=== PATIENT | male | born 1965 | race Native Hawaiian/Other Pacific Islander ===

== ENCOUNTER 2017-06-15 07:31 | Inpatient (IN) | payer OTHER ==
[2017-06-09 09:13] VITALS: BMI 25.0
[2017-06-15] MEDS ORDERED: Midazolam 2 MG/2 ML VIAL ONE (09:16)
[2017-06-15] MEDS ORDERED: Propofol 10 mg/ml Inj (20 ML) ONE (09:16)
[2017-06-15] MEDS ORDERED: Gentamicin 80 mg in 0.9% NS 160 MG/200 ML BAG IVPB ONE (09:24)
[2017-06-15] MEDS ORDERED: cefTRIAXone IV 1 gm in Dextros 50 ML IVPB ONE (09:24)
[2017-06-15] MEDS ORDERED: Lidocaine 2% Jelly (Uro-Jet) ONE (09:25)
[2017-06-15] MEDS ORDERED: Phenylephrine 10 mg/ml Inj ONE (09:35)
[2017-06-15] MEDS ORDERED: ePHEDrine 50 mg/ml Inj ONE (09:35)
[2017-06-15] MEDS: HYDROmorphone 0.5 mg/0.5 ml ISec IVP PRN ×2 (11:40→12:00)
--- NOTE | 2017-06-15 12:33 | PCM.SURG1 ---
Surgeon's Initial Post Op Note - Surgeon's Notes Surgeon: Soraya Posey [place] Boat Pilot: none Type of Anesthesia: General LMA Pre-Operative Diagnosis: urinary retention, BPH Operative Findings: same Post-Operative Diagnosis: same Operation Performed: cystoscopy, TURP Specimen/Specimens Removed: urine. prostate Estimated Blood Loss: EBL {In ML}: 200 Blood Products Given: N/A Post-Op Condition: Good Date of Surgery/Procedure: 06/15/17 Time of Surgery/Procedure: 11:00
--- NOTE | 2017-06-15 13:13 | CP.PCM.HP ---
<Rodolfo Cordova - Last Filed: 06/15/17 14:07> History of Present Illness - History of Present Illness History of Present Illness: CC: S/P TURP HPI: 52M PMHx BPH presented for post operative management after TURP. Pt seen and examined at PACU. Pt lethargic after anesthesia but was able to answer simple questions. Pt reports BPH symptoms started 2 years ago. Pt was seen by Dr. Posey outpatient and was placed on trial of Flomax. Pt said it did not work and he still have frequency and nocturia 2-3 times overnight. Pt currently denied pain, chest pain, abdominal pain, SOB, palpitations, fever, chills, n/ v. NKDA PMHx: none PSHx: none FMHx: reviewed and not contributory Social: Denied ETOH, tobacco or drugs. Works as agency cashier. PMD: Dr. Figueroa Present on Admission - Present on Admission Any Indicators Present on Admission: No Review of Systems - Constitutional Constitutional: absent: Chills, Fever, Weakness - Cardiovascular Cardiovascular: absent: Chest Pain, Edema, Pedal Edema - Respiratory Respiratory: absent: Cough, Dyspnea - Gastrointestinal Gastrointestinal: absent: Abdominal Pain, Constipation, Diarrhea, Nausea, Vomiting - Genitourinary Genitourinary: Nocturia, Urinary Frequency. absent: Hematuria - Musculoskeletal Musculoskeletal: absent: Back Pain - Integumentary Integumentary: absent: Change in Nails, Rash - Neurological Neurological: absent: Confusion Past Patient History - Past Medical History & Family History Past Medical History?: Yes - Past Social History Smoking Status: Never Smoked - CARDIAC Hx Cardiac Disorders: No - PULMONARY Hx Respiratory Disorders: No - NEUROLOGICAL Hx Neurological Disorder: No - HEENT Hx HEENT Problems: No - RENAL Hx Chronic Kidney Disease: No - ENDOCRINE/METABOLIC Hx Endocrine Disorders: No - HEMATOLOGICAL/ONCOLOGICAL Hx Blood Disorders: No - INTEGUMENTARY Hx Dermatological Problems: No - MUSCULOSKELETAL/RHEUMATOLOGICAL Hx Musculoskeletal Disorders: No - GASTROINTESTINAL Hx Gastrointestinal Disorders: No - GENITOURINARY/GYNECOLOGICAL Hx Genitourinary Disorders: Yes Hx Prostate Problems: Yes - PSYCHIATRIC Hx Psychophysiologic Disorder: No - SURGICAL HISTORY Hx Surgeries: Yes Other/Comment: cystoscopy prostate biopsy - ANESTHESIA Hx Anesthesia: Yes Hx Anesthesia Reactions: No Hx Malignant Hyperthermia: No Has any member of the family had a problem w/ anesthesia?: No Meds Allergies/Adverse Reactions: Allergies Allergy/AdvReac Type Severity Reaction Status Date / Time No Known Allergies Allergy Verified 06/09/17 09:13 Physical Exam - Constitutional Appears: Non-toxic, No Acute Distress - Head Exam Head Exam: NORMOCEPHALIC - Eye Exam Eye Exam: Normal appearance Pupil Exam: NORMAL ACCOMODATION - ENT Exam ENT Exam: Mucous Membranes Moist - Respiratory Exam Respiratory Exam: Clear to Auscultation Bilateral, NORMAL BREATHING PATTERN. absent: Rales, Rhonchi, Wheezes - Cardiovascular Exam Cardiovascular Exam: REGULAR RHYTHM, +S1, +S2. absent: Gallop, Rubs - GI/Abdominal Exam GI & Abdominal Exam: Normal Bowel Sounds, Soft. absent: Tenderness - Exam Additional comments: CBI running, draining pink urine - Neurological Exam Neurological exam: Alert, Oriented x3 - Psychiatric Exam Psychiatric exam: Normal Mood - Skin Skin Exam: Intact Additional comments: left anterior ankle chronic 1cm mass Results - Vital Signs Recent Vital Signs: Last Vital Signs Temp 97 F L 06/15/17 11:20 Pulse 64 06/15/17 12:15 Resp 10 L 06/15/17 12:15 BP 120/76 06/15/17 12:15 Pulse Ox 100 06/15/17 12:15 - Labs Result Diagrams: 06/15/17 13:46 Assessment & Plan - Assessment and Plan (Free Text) Assessment: BPH Private urologist Dr. Wayne Posey consulted, help appreciated. Failed outpatient treatment with Flomax. S/P TURP POD#0. Rocephin 1gm IV daily started on 06/15. KCl 20meq @ 100 ml/hr. Florastor 250mg PO BID. Toradol 15mg PO q6 PRN for moderate pain. Toradol 30mg PO q6 PRN for severe pain. Advance diet as tolerated. CBI management as per urology. Prophylactic measure Protonix, SCD. <Bob Lim - Last Filed: 06/15/17 18:49> Results - Vital Signs Recent Vital Signs: Last Vital Signs Temp 97.9 F 06/15/17 15:18 Pulse 60 06/15/17 15:18 Resp 20 06/15/17 15:18 BP 110/69 06/15/17 15:18 Pulse Ox 99 06/15/17 15:18 - Labs Result Diagrams: 06/15/17 13:46 06/15/17 13:46 Labs: Laboratory Results - last 24 hr 06/15/17 06/15/17 06/15/17 13:46 13:46 13:46 WBC 5.9 RBC 4.07 L Hgb 12.2 Hct 36.8 MCV 90.5 MCH 29.9 MCHC 33.1 RDW 13.8 Plt Count 240 MPV 9.8 Neut % (Auto) 58.0 Lymph % (Auto) 33.3 [place] % (Auto) 6.2 Eos % (Auto) 2.0 Baso % (Auto) 0.5 Neut # 3.4 Lymph # 2.0 [place] # 0.4 Eos # 0.1 Baso # 0.0 PT 12.4 H INR 1.1 APTT 33 Sodium 133 Potassium 4.1 Chloride 98 Carbon Dioxide 24 Anion Gap 15 BUN 12 Creatinine 1.0 Est GFR ( Amer) > 60 Est GFR (Non-Af Amer) > 60 Random Glucose 92 Calcium 8.3 L Phosphorus 3.9 Magnesium 1.8 Total Bilirubin 0.7 AST 35 ALT 35 Alkaline Phosphatase 51 Total Protein 6.8 Albumin 3.5 Globulin 3.3 Albumin/Globulin Ratio 1.1 Attending/Attestation - Attestation I have personally seen and examined this patient.: Yes I have fully participated in the care of the patient.: Yes I have reviewed all pertinent clinical information: Yes Notes (Text): 06/15/17 18:48 Patient was seen and examined before the resident. History, Physical, Assessment and Plan were thoroughly gone over with the resident. Bob Lim D.O.
[2017-06-15 13:52] LABS: BASO % 0.5 % (0.0-2.0); EOS # 0.1 K/uL (0.0-0.7); HEMATOCRIT 36.8 % (35.0-51.0); LYMPH % 33.3 % (20.0-40.0); MEAN CELL VOLUME 90.5 fL (80.0-94.0); MEAN CORPUSCULAR HEMOGLOBIN 29.9 pg (27.0-31.0); MEAN CORPUSCULAR HGB CONC 33.1 g/dL (33.0-37.0); MEAN PLATELET VOLUME 9.8 fL (7.2-11.7); MONO # 0.4 K/uL (0.0-0.8); MONO % 6.2 % (0.0-10.0); NRBC % 0.1 % (0.0-2.0); RED CELL DISTRIBUTION WIDTH 13.8 % (11.5-14.5); WHITE BLOOD COUNT 5.9 K/uL (4.8-10.8)
[2017-06-15 14:02] LABS: INR 1.1
[2017-06-15 14:21] LABS: CHLORIDE 98 mmol/L (98-107); SODIUM 133 mmol/L (132-148)
[2017-06-15 14:22] LABS: POTASSIUM 4.1 mmol/L (3.6-5.2)
[2017-06-15 14:23] LABS: GFR AFRICAN-AMERICAN > 60
[2017-06-15 14:24] LABS: ALB/GLOB RATIO 1.1 (1.0-2.1); ALKALINE PHOSPHATASE 51 U/L (38-126); ALT/SGPT 35 U/L (21-72); AST/SGOT 35 U/L (17-59); BILIRUBIN,TOTAL 0.7 mg/dL (0.2-1.3); BLOOD UREA NITROGEN 12 mg/dL (9-20); CARBON DIOXIDE 24 mmol/L (22-30); GLUCOSE,RANDOM 92 mg/dL (75-110); PHOSPHOROUS 3.9 mg/dL (2.5-4.5); TOTAL PROTEIN 6.8 g/dL (6.3-8.3)
[2017-06-15 14:25] LABS: CALCIUM 8.3 mg/dl (8.6-10.4); MAGNESIUM 1.8 mg/dL (1.6-2.3)
[2017-06-15] MEDS: Potassium Ch 20mEq in D5-1/2NS 1,000 ML IV SCH ×2 (15:07→23:09)
[2017-06-15 15:42] VITALS: RESP 20
[2017-06-15] MEDS: Saccharomyces Boulardi 250 mg Cap PO SCH (19:17)
[2017-06-16] MEDS: Potassium Ch 20mEq in D5-1/2NS 1,000 ML IV SCH (01:36)
--- NOTE | 2017-06-16 06:07 | OP ---
PROCEDURE DATE: 06/15/2017 UROLOGY OPERATIVE REPORT PREOPERATIVE DIAGNOSES: Urinary retention, enlarged prostate. POSTOPERATIVE DIAGNOSES: Urinary retention, enlarged prostate. PROCEDURE: Cystoscopy, urethral dilation, transurethral resection of the prostate. OPERATING SURGEON: Gracy Posey MD PROCEDURE IN DETAIL: The patient received general anesthesia. The patient was placed in lithotomy position. The genitalia was prepped and draped sterilely. Perioperative antibiotics were administered. The procedure was performed under video endoscopic control. A cystoscopy was performed. A 22-[place] cystoscope sheath was introduced under direct vision. Urethra, prostate, and bladder were inspected. FINDINGS: It was noted to be no stricture in the anterior urethra. There was evidence of prostatic hypertrophy. There was trilobar prostatic hypertrophy. There was a large middle lobe, on the floor. There was marked bladder trabeculation. There were small cellules as well. There was no bladder tumor. There was no bladder stone. The ureteral orifices were initially obscured by the middle lobe. However, the orifices were identified by medial displacement of the middle lobe on each side. The cystoscope was removed. A 26-[place] continuous flow resectoscope sheath was introduced under direct vision using the visual obturator. Prior to the introduction of the resectoscope, urethral meatal dilation and dilation, were required and were performed with [place] sounds. Thereafter, the resectoscope sheath was introduced. The urethra, prostate and bladder were again inspected with the findings as noted above. The resectoscope was inserted. The resection of the prostate was performed as follows. The ureteral orifice were identified and spared during the middle lobe resection. Thereafter, the anterior roof tissue was resected. Subsequently, each lateral lobe was resected, first on the right, then on the left. Subsequently, the floor and apical prostatic tissue were resected. Hemostasis was achieved after each section of resection. The prostate was noted to be vascular. The hemostasis was achieved during the resection. The prostatic chips were removed using the [place] scientific evacuator. The resectoscope was re-inserted. Hemostasis was complete. The ureteral orifices were intact. The veru was intact. There were no residual prostatic chips. The resectoscope and sheath removed. [place] catheter was inserted. Bladder drainage was clear with mild traction applied. The patient tolerated the procedure without complication. Gracy MD Kalpesh
[2017-06-16 06:28] LABS: HEMATOCRIT 35.4 % (35.0-51.0); MEAN CELL VOLUME 90.9 fL (80.0-94.0); MEAN CORPUSCULAR HEMOGLOBIN 30.8 pg (27.0-31.0); MEAN CORPUSCULAR HGB CONC 33.9 g/dL (33.0-37.0); MEAN PLATELET VOLUME 10.1 fL (7.2-11.7); RED CELL DISTRIBUTION WIDTH 13.5 % (11.5-14.5); WHITE BLOOD COUNT 7.8 K/uL (4.8-10.8)
[2017-06-16 07:32] LABS: CHLORIDE 101 mmol/L (98-107); POTASSIUM 4.9 mmol/L (3.6-5.2); SODIUM 136 mmol/L (132-148)
[2017-06-16 07:34] LABS: GFR AFRICAN-AMERICAN > 60
[2017-06-16 07:35] LABS: BLOOD UREA NITROGEN 11 mg/dL (9-20); CALCIUM 8.4 mg/dl (8.6-10.4); CARBON DIOXIDE 27 mmol/L (22-30); GLUCOSE,RANDOM 95 mg/dL (75-110)
[2017-06-16] MEDS: Saccharomyces Boulardi 250 mg Cap PO SCH ×2 (09:51→18:16)
[2017-06-16] MEDS ORDERED: cefTRIAXone IV 1 gm in Dextros 50 ML IVPB SCH (10:00)
[2017-06-16] MEDS ORDERED: Pantoprazole 40 mg EC Tab PO SCH (10:00)
--- NOTE | 2017-06-16 10:06 | CP.PCM.PN ---
Subjective - Date & Time of Evaluation Date of Evaluation: 06/16/17 Time of Evaluation: 09:00 - Subjective Subjective: Medicine Note for Dr. Kirsten Lim, Patient was seen and examined at bedside. Patient reports slight pain and discomfort. Denied fever, chills, headache, chest pain, SOB, abdominal pain, n/v /d/c, or urinary symptoms. Objective - Vital Signs/Intake and Output Vital Signs (last 24 hours): Temp Pulse Resp BP Pulse Ox 97.3 F L 69 20 99/64 L 97 06/16/17 07:10 06/16/17 07:10 06/16/17 07:10 06/16/17 07:10 06/16/17 07:10 Intake and Output: 06/16/17 06/16/17 06:59 18:59 Intake Total 64537 Output Total 77652 Balance 1120 - Medications Medications: Current Medications Docusate Sodium (Colace) 100 mg PO TID [facility] Last Admin: 06/16/17 09:51 Dose: 100 mg Hydromorphone/Sodium Chloride (Dilaudid Safety Investigator/Cause Analyst) 4 mg IV Q4H PRN; Protocol PRN Reason: Pain, severe (8-10) Ceftriaxone Sodium (Rocephin Iv 1 Gm Duplex) 50 mls @ 100 mls/hr IVPB DAILY [facility] Potassium Chloride/Dextrose/Sod Cl (Potassium Chl 20 Meq In D5-1/2ns) 1,000 mls @ 100 mls/hr IV .Q10H [facility] Last Admin: 06/16/17 01:36 Dose: 100 mls/hr Ketorolac Tromethamine (Toradol) 30 mg IVP Q6 PRN PRN Reason: Pain, severe (8-10) Ketorolac Tromethamine (Toradol) 15 mg IVP Q6 PRN PRN Reason: moderate pain, 4-7 Ondansetron HCl (Zofran Inj) 4 mg IVP Q6H PRN PRN Reason: Nausea/Vomiting Pantoprazole Sodium (Protonix Ec Tab) 40 mg PO DAILY [facility] Saccharomyces Boulardii (Florastor) 250 mg PO BID [facility] Last Admin: 06/16/17 09:51 Dose: 250 mg - Labs Labs: 06/16/17 06:05 06/16/17 06:05 PT 12.4 SECONDS (9.7-12.2) H 06/15/17 13:46 INR 1.1 06/15/17 13:46 APTT 33 SECONDS (21-34) 06/15/17 13:46 - Additional Findings Additional findings: - Constitutional Appears: Non-toxic, No Acute Distress - Head Exam Head Exam: NORMOCEPHALIC - Eye Exam Eye Exam: Normal appearance Pupil Exam: NORMAL ACCOMODATION - ENT Exam ENT Exam: Mucous Membranes Moist - Respiratory Exam Respiratory Exam: Clear to Auscultation Bilateral, NORMAL BREATHING PATTERN. absent: Rales, Rhonchi, Wheezes - Cardiovascular Exam Cardiovascular Exam: REGULAR RHYTHM, +S1, +S2. absent: Gallop, Rubs - GI/Abdominal Exam GI & Abdominal Exam: Normal Bowel Sounds, Soft. absent: Tenderness - Exam Additional comments: CBI running, draining pink urine - Neurological Exam Neurological exam: Alert, Oriented x3 - Psychiatric Exam Psychiatric exam: Normal Mood - Skin Skin Exam: Intact Additional comments: left anterior ankle chronic 1cm mass Assessment and Plan - Assessment and Plan (Free Text) Plan: BPH Private urologist Dr. Wayne Posey consulted, help appreciated Failed outpatient treatment with Flomax S/P TURP Advance diet as tolerated CBI management as per urology F/U blood and urine culture Rocephin 1gm IV daily started on 06/15 NS + KCL @ 100 ml/hr Florastor 250mg PO BID Toradol 15mg PO q6 PRN for moderate pain Toradol 30mg PO q6 PRN for severe pain Colace 100mg PO TID Prophylactic measure Protonix, SCD Disposition: Pending recommendations from Urology for clearance to be discharged. Nikhil Rees Dr., DO, PGY-1
--- NOTE | 2017-06-16 11:27 | CP.PCM.DIS ---
<So Tejeda - Last Filed: 06/16/17 11:38> Provider - Provider Date of Admission: 06/15/17 07:31 Attending physician: Bob Lim MD Consults: Urology- Dr. Wayne Posey Time Spent in preparation of Discharge (in minutes): 55 Hospital Course - Lab Results Lab Results: Most Recent Lab Values WBC 7.8 K/uL (4.8-10.8) 06/16/17 06:05 RBC 3.89 Mil/uL (4.40-5.90) L 06/16/17 06:05 Hgb 12.0 g/dL (12.0-18.0) 06/16/17 06:05 Hct 35.4 % (35.0-51.0) 06/16/17 06:05 MCV 90.9 fL (80.0-94.0) 06/16/17 06:05 MCH 30.8 pg (27.0-31.0) 06/16/17 06:05 MCHC 33.9 g/dL (33.0-37.0) 06/16/17 06:05 RDW 13.5 % (11.5-14.5) 06/16/17 06:05 Plt Count 256 K/uL (130-400) 06/16/17 06:05 MPV 10.1 fL (7.2-11.7) 06/16/17 06:05 Neut % (Auto) 58.0 % (50.0-75.0) 06/15/17 13:46 Lymph % (Auto) 33.3 % (20.0-40.0) 06/15/17 13:46 [place] % (Auto) 6.2 % (0.0-10.0) 06/15/17 13:46 Eos % (Auto) 2.0 % (0.0-4.0) 06/15/17 13:46 Baso % (Auto) 0.5 % (0.0-2.0) 06/15/17 13:46 Neut # 3.4 K/uL (1.8-7.0) 06/15/17 13:46 Lymph # 2.0 K/uL (1.0-4.3) 06/15/17 13:46 [place] # 0.4 K/uL (0.0-0.8) 06/15/17 13:46 Eos # 0.1 K/uL (0.0-0.7) 06/15/17 13:46 Baso # 0.0 K/uL (0.0-0.2) 06/15/17 13:46 PT 12.4 SECONDS (9.7-12.2) H 06/15/17 13:46 INR 1.1 06/15/17 13:46 APTT 33 SECONDS (21-34) 06/15/17 13:46 Sodium 136 mmol/L (132-148) 06/16/17 06:05 Potassium 4.9 mmol/L (3.6-5.2) 06/16/17 06:05 Chloride 101 mmol/L (98-107) 06/16/17 06:05 Carbon Dioxide 27 mmol/L (22-30) 06/16/17 06:05 Anion Gap 13 (10-20) 06/16/17 06:05 BUN 11 mg/dL (9-20) 06/16/17 06:05 Creatinine 1.1 mg/dL (0.8-1.5) 06/16/17 06:05 Est GFR ( Amer) > 60 06/16/17 06:05 Est GFR (Non-Af Amer) > 60 06/16/17 06:05 Random Glucose 95 mg/dL (75-110) 06/16/17 06:05 Calcium 8.4 mg/dl (8.6-10.4) L 06/16/17 06:05 Phosphorus 3.9 mg/dL (2.5-4.5) 06/15/17 13:46 Magnesium 1.8 mg/dL (1.6-2.3) 06/15/17 13:46 Total Bilirubin 0.7 mg/dL (0.2-1.3) 06/15/17 13:46 AST 35 U/L (17-59) 06/15/17 13:46 ALT 35 U/L (21-72) 06/15/17 13:46 Alkaline Phosphatase 51 U/L (38-126) 06/15/17 13:46 Total Protein 6.8 g/dL (6.3-8.3) 06/15/17 13:46 Albumin 3.5 g/dL (3.5-5.0) 06/15/17 13:46 Globulin 3.3 gm/dL (2.2-3.9) 06/15/17 13:46 Albumin/Globulin Ratio 1.1 (1.0-2.1) 06/15/17 13:46 - Hospital Course Hospital Course: Upon Admission: CC: S/P TURP HPI: 52M PMHx BPH presented for post operative management after TURP. Pt seen and examined at PACU. Pt lethargic after anesthesia but was able to answer simple questions. Pt reports BPH symptoms started 2 years ago. Pt was seen by Dr. Posey outpatient and was placed on trial of Flomax. Pt said it did not work and he still have frequency and nocturia 2-3 times overnight. Pt currently denied pain, chest pain, abdominal pain, SOB, palpitations, fever, chills, n/ v. NKDA PMHx: none PSHx: none FMHx: reviewed and not contributory Social: Denied ETOH, tobacco or drugs. Works as hostess cashier. PMD: Dr. Figueroa Throughout Hospital Course: Patient was admitted for s/p TURB observation post op. BPH Private urologist Dr. Wayne Posey consulted, help appreciated. Failed outpatient treatment with Flomax. S/P TURP POD#0. Rocephin 1gm IV daily started on 06/15. KCl 20meq @ 100 ml/hr. Florastor 250mg PO BID. Toradol 15mg PO q6 PRN for moderate pain. Toradol 30mg PO q6 PRN for severe pain. Advance diet as tolerated. CBI management as per urology. This is a brief summary of the patient's hospital course, please review EMR for full report. Discharge Exam - Additional Findings Additional findings: - Constitutional Appears: Non-toxic, No Acute Distress - Head Exam Head Exam: NORMOCEPHALIC - Eye Exam Eye Exam: Normal appearance Pupil Exam: NORMAL ACCOMODATION - ENT Exam ENT Exam: Mucous Membranes Moist - Respiratory Exam Respiratory Exam: Clear to Auscultation Bilateral, NORMAL BREATHING PATTERN. absent: Rales, Rhonchi, Wheezes - Cardiovascular Exam Cardiovascular Exam: REGULAR RHYTHM, +S1, +S2. absent: Gallop, Rubs - GI/Abdominal Exam GI & Abdominal Exam: Normal Bowel Sounds, Soft. absent: Tenderness - Exam Additional comments: CBI running, draining pink urine - Neurological Exam Neurological exam: Alert, Oriented x3 - Psychiatric Exam Psychiatric exam: Normal Mood - Skin Skin Exam: Intact Additional comments: left anterior ankle chronic 1cm mass Discharge Plan - Discharge Medications Prescriptions: Saccharomyces Boulardi [Florastor] 250 mg PO BID #60 cap - Follow Up Plan Condition: GOOD Disposition: HOME/ ROUTINE Instructions: Probiotic (By mouth), Transurethral Prostatectomy (DC), Pain Management After Surgery (DC) Additional Instructions: Patient is safe for discharge. You are to continue taking Levaquin 500mg by mouth daily for the next 10 days, you have a prescription for pain medications, please take as needed, colace 100mg by mouth twice a day to help with bowel movements (since the pain medications can make you constipated), and florastor 250mg by mouth twice a day (take 1-2 hours before you take levaquin and up to one month after you finish the antiobiotic, this is help prevent upset stomach from the antibiotics). Please make an appointment with Dr. Gracy Posey next week Tuesday or . Referrals: Gracy Posey MD [Staff Provider] - <Bob Lim - Last Filed: 06/16/17 18:53> Provider - Provider Date of Admission: 06/15/17 07:31 Attending physician: Bob Lim MD Hospital Course - Lab Results Lab Results: Micro Results 06/15/17 13:45 Blood-Venous Blood Culture - Preliminary NO GROWTH AFTER 24 HOURS 06/15/17 13:30 Blood-Venous Blood Culture - Preliminary NO GROWTH AFTER 24 HOURS 06/15/17 Unknown Urine,Catheterized Urine Culture - Preliminary Gram Negative Kehinde Most Recent Lab Values WBC 7.8 K/uL (4.8-10.8) 06/16/17 06:05 RBC 3.89 Mil/uL (4.40-5.90) L 06/16/17 06:05 Hgb 12.0 g/dL (12.0-18.0) 06/16/17 06:05 Hct 35.4 % (35.0-51.0) 06/16/17 06:05 MCV 90.9 fL (80.0-94.0) 06/16/17 06:05 MCH 30.8 pg (27.0-31.0) 06/16/17 06:05 MCHC 33.9 g/dL (33.0-37.0) 06/16/17 06:05 RDW 13.5 % (11.5-14.5) 06/16/17 06:05 Plt Count 256 K/uL (130-400) 06/16/17 06:05 MPV 10.1 fL (7.2-11.7) 06/16/17 06:05 Neut % (Auto) 58.0 % (50.0-75.0) 06/15/17 13:46 Lymph % (Auto) 33.3 % (20.0-40.0) 06/15/17 13:46 [place] % (Auto) 6.2 % (0.0-10.0) 06/15/17 13:46 Eos % (Auto) 2.0 % (0.0-4.0) 06/15/17 13:46 Baso % (Auto) 0.5 % (0.0-2.0) 06/15/17 13:46 Neut # 3.4 K/uL (1.8-7.0) 06/15/17 13:46 Lymph # 2.0 K/uL (1.0-4.3) 06/15/17 13:46 [place] # 0.4 K/uL (0.0-0.8) 06/15/17 13:46 Eos # 0.1 K/uL (0.0-0.7) 06/15/17 13:46 Baso # 0.0 K/uL (0.0-0.2) 06/15/17 13:46 PT 12.4 SECONDS (9.7-12.2) H 06/15/17 13:46 INR 1.1 06/15/17 13:46 APTT 33 SECONDS (21-34) 06/15/17 13:46 Sodium 136 mmol/L (132-148) 06/16/17 06:05 Potassium 4.9 mmol/L (3.6-5.2) 06/16/17 06:05 Chloride 101 mmol/L (98-107) 06/16/17 06:05 Carbon Dioxide 27 mmol/L (22-30) 06/16/17 06:05 Anion Gap 13 (10-20) 06/16/17 06:05 BUN 11 mg/dL (9-20) 06/16/17 06:05 Creatinine 1.1 mg/dL (0.8-1.5) 06/16/17 06:05 Est GFR ( Amer) > 60 06/16/17 06:05 Est GFR (Non-Af Amer) > 60 06/16/17 06:05 Random Glucose 95 mg/dL (75-110) 06/16/17 06:05 Calcium 8.4 mg/dl (8.6-10.4) L 06/16/17 06:05 Phosphorus 3.9 mg/dL (2.5-4.5) 06/15/17 13:46 Magnesium 1.8 mg/dL (1.6-2.3) 06/15/17 13:46 Total Bilirubin 0.7 mg/dL (0.2-1.3) 06/15/17 13:46 AST 35 U/L (17-59) 06/15/17 13:46 ALT 35 U/L (21-72) 06/15/17 13:46 Alkaline Phosphatase 51 U/L (38-126) 06/15/17 13:46 Total Protein 6.8 g/dL (6.3-8.3) 06/15/17 13:46 Albumin 3.5 g/dL (3.5-5.0) 06/15/17 13:46 Globulin 3.3 gm/dL (2.2-3.9) 06/15/17 13:46 Albumin/Globulin Ratio 1.1 (1.0-2.1) 06/15/17 13:46 Attending/Attestation - Attestation I have personally seen and examined this patient.: Yes I have fully participated in the care of the patient.: Yes I have reviewed all pertinent clinical information, including history, physical exam and plan: Yes Notes (Text): 06/16/17 18:51 Patient was seen and examined at 10:00 AM Exam, assessment and plan and discharge instructions were thoroughly gone over with the resident. Rx for Levaquin, Percocet were provided by Dr. Gracy Posey. Bob Lim D.O.
[2017-06-16 16:28] VITALS: BP 116/76; PULSE 72; TEMP 98; O2SAT 99
--- NOTE | 2017-06-16 21:04 | PCM.URO ---
Urology Progress Note - General General: No Complaints, Tolerating Diet - Subjective Abdominal Pain: No Flank Pain: No Nausea: No Vomiting: No Voiding Well: No (catheter in place) Hematuria: No Dsypnea: No Chest Pain: No Fever & Chills: No - Objective Lab Studies: Reviewed Lab Results Last 24 Hours: Laboratory Results - last 24 hr 06/16/17 06/16/17 06:05 06:05 WBC 7.8 RBC 3.89 L Hgb 12.0 Hct 35.4 MCV 90.9 MCH 30.8 MCHC 33.9 RDW 13.5 Plt Count 256 MPV 10.1 Sodium 136 Potassium 4.9 Chloride 101 Carbon Dioxide 27 Anion Gap 13 BUN 11 Creatinine 1.1 Est GFR ( Amer) > 60 Est GFR (Non-Af Amer) > 60 Random Glucose 95 Calcium 8.4 L Intake & Output: Intake & Output 06/16/17 06/16/17 06/17/17 06:59 18:59 06:59 Intake Total 87451 600 Output Total 70037 2150 Balance 1120 -1550 Intake: Intake, IV Amount 800 Left Antecubital 800 Oral 320 600 Other 70837 Output: Urine 10489 2150 3-way Urethral 300 2150 Other: # Bowel Movements 0 0 Vital Signs: Vital Signs - 24 hr 06/16/17 06/16/17 06/16/17 01:25 05:07 07:10 Temperature 98.7 F 98.1 F 97.3 F L Pulse Rate 83 71 69 Respiratory 20 20 20 Rate Blood Pressure 107/71 97/64 L 99/64 L O2 Sat by Pulse 98 96 97 Oximetry 06/16/17 15:00 Temperature 98 F Pulse Rate 72 Respiratory 20 Rate Blood Pressure 116/76 O2 Sat by Pulse 99 Oximetry - Physical Exam Abdominal Exam: Soft, Non-Tender, Non-Distended Back: No CVA Tenderness Genitalia: Without Inflammation Urine Color: Light Susanna Extremities: Normal: Bilateral - Male Phallus: Normal, Circumcised Scrotum: Normal Testes: Normal: Bilateral - Plan Advance Diet: Yes Catheter Care: Yes Ambulation - Out of Bed: Yes Discontinue Intravenous Fluids: Yes Intake & Output: Yes See Orders: Yes Additional Information: Imp: progressing well. post TURP. P/rec: nelson cath to leg bag. catheter care. outpt f/u. restricted activity. Rx: levaquin, colace. Discussed with resident staff, hospital staff, and nursing staff. Discussed w pt.
== END 2017-06-16 20:40 | disposition home or self-care (01) | DRG 337 ==
LOC: C.9S 07:31 → C.6T 13:49
PROVIDERS: ADMIT Family Medicine; ATTEND Family Medicine
PROC: 0VT08ZZ Resection of Prostate, Via Natural or Artificial Opening Endoscopic (ICD-10-PCS; principal; 2017-06-15 09:00)
DX: N40.1 Benign prostatic hyperplasia with lower urinary tract symptoms (principal); R33.9 Retention of urine, unspecified; R33.8 Other retention of urine

== ENCOUNTER 2017-06-30 11:26 | Emergency (ER) | payer OTHER ==
[2017-06-30 11:26] VITALS: BMI 25.0
[2017-06-30 11:50] VITALS: RESP 18
--- NOTE | 2017-06-30 12:26 | C.PDOC ---
History Of Present Illness 52 y/o male s/p TURP by Dr Soraya Posey on 06/15, presents to ED with increasingly small urethral meatus with difficulty and painful voiding over the last 5 days. denies fever or chills, no abdominal pain. pt has taken 2 rounds of antibiotics since procedure. Time Seen by Provider: 06/30/17 12:11 Chief Complaint (Nursing): Male Genitourinary History Per: Patient History/Exam Limitations: no limitations Onset/Duration Of Symptoms: Days (5) Current Symptoms Are (Timing): Worse Quality Of Discomfort: Burning Associated Symptoms: Urinary Symptoms. denies: Fever, Chills, Nausea, Vomiting Past Medical History Reviewed: Historical Data, Nursing Documentation, Vital Signs Vital Signs: Last Vital Signs Temp 98.1 F 06/30/17 11:47 Pulse 92 H 06/30/17 11:47 Resp 18 06/30/17 11:47 BP 108/71 06/30/17 11:47 Pulse Ox 98 06/30/17 12:44 - Medical History PMH: Denies: Chronic Kidney Disease Other PMH: urinary retention, bph Other Surgeries: TURP - [facility] RESECTION OF PROSTATE, ENDO (06/15/17) Family History: States: Unknown Family Hx - Social History Hx Alcohol Use: No Hx Substance Use: No - Immunization History Hx Tetanus Toxoid Vaccination: No Hx Influenza Vaccination: No Hx Pneumococcal Vaccination: No Review Of Systems Constitutional: Negative for: Fever, Chills Gastrointestinal: Negative for: Nausea, Vomiting, Abdominal Pain Genitourinary: Positive for: Dysuria, Frequency, Penile Pain (decreasing urethral meatus) Physical Exam - Physical Exam Appears: Non-toxic, No Acute Distress Skin: Warm, Dry Gastrointestinal/Abdominal: Soft, Tenderness (mild suprpaubic tenderness, no distension), No Guarding, No Rebound Male Genital: No Inguinal Tenderness, Circumcised (urethral meatus approx 1-2 mm , scant urine dribbling, chaperoned by [place] Griffin. ) Neurological/Psych: Oriented x3, Normal Speech, Normal Cognition ED Course And Treatment O2 Sat by Pulse Oximetry: 98 Medical Decision Making Medical Decision Making: discussed with Dr Soraya Posey; request ua and uc and bladder scan. 1243 pm bladder scan reveals approx 50-100 ml urine. 140pm discussed with Dr Posey; pt to be discharged with macrobid; pt to call office today to find out if he can be seen by Dr Posey in office today. Disposition Counseled Patient/Family Regarding: Studies Performed, Diagnosis, Need For Followup, Rx Given - Disposition Referrals: Gracy Posey MD [Staff Provider] - Disposition: HOME/ ROUTINE Disposition Time: 13:41 Condition: STABLE Additional Instructions: Please call Dr Posey's office today to make appoinment for today. Take antibiotics as prescribed. Return to ER for any worsening symptoms. Prescriptions: Nitrofurantoin Macrocrystals [Macrobid] 100 mg PO BID #14 cap Instructions: Urinary Tract Infection in Men (ED) Forms: [facility] ([place]), General Discharge Instructions - Clinical Impression Clinical Impression: Urinary tract infection, Urethra disorder
[2017-06-30 13:02] LABS: RBC URINE 514 /hpf (0-3); URINE BACTERIA RARE (<OCC); URINE BILIRUBIN NEGATIVE (NEGATIVE); URINE BLOOD 3+ (NEGATIVE); URINE COLOR Yellow (YELLOW); URINE GLUCOSE (UA) NORMAL (Normal); URINE KETONE NEGATIVE (NEGATIVE); URINE LEUKOCYTE ESTERASE 3+ Leu/uL (Negative); URINE PROTEIN 2+ mg/dL (NEGATIVE); URINE UROBILINOGEN NORMAL mg/dL (0.2-1.0); WBC URINE 206 /hpf (0-5)
[2017-06-30 13:58] VITALS: BP 104/70; PULSE 74; TEMP 98
[2017-06-30 22:14] VITALS: O2SAT 98
== END 2017-06-30 13:45 | disposition home or self-care (01) ==
LOC: C.ER 11:26
DX: N39.0 Urinary tract infection, site not specified (principal); N36.9 Urethral disorder, unspecified